=== PATIENT | male | born 1980 | race Two or more races ===

== ENCOUNTER → 2019-09-05 | Emergency (ER) | payer MEDICAID, OTHER ==
[~2019-09-05] VITALS: Ht 175.3 cm; Wt 106.6 kg
[~2019-09-05] MED LIST: KETOROLAC TROMETH 60MG/2ML VIAL IM ONE
[2019-09-05 19:30] VITALS: BP 131/102
== END | disposition home or self-care (01) ==
LOC: ER 15:37 → EDSEX 15:37
DX: S22.32XA Fracture of one rib, left side, initial encounter for closed fracture (principal); M62.838 Other muscle spasm; F17.210 Nicotine dependence, cigarettes, uncomplicated; W01.0XXA Fall on same level from slipping, tripping and stumbling without subsequent striking against object, initial encounter; Y93.01 Activity, walking, marching and hiking; Y92.009 Unspecified place in unspecified non-institutional (private) residence as the place of occurrence of the external cause; Y99.8 Other external cause status
CPT/HCPCS: 71101; 96372; 99283; J1885